=== PATIENT | male | born 1960 | race Caucasian/White ===

== ENCOUNTER 2022-04-24 21:20 | Observation (INO) | payer BC ==
[~2022-04-24] VITALS: Ht 180.3 cm; Wt 107.5 kg
[2022-04-24 22:26] LABS: BASOPHILS # (AUTO) 0.1 (0.0-0.1); BASOPHILS % 0.6 % (0.0-1.0); EOSINOPHILS # (AUTO) 0.3 (0.0-0.4); EOSINOPHILS % 2.7 % (0.0-6.0); HEMATOCRIT 47.9 % (38.2-49.6); HEMOGLOBIN 15.7 g/dL (14.0-18.0); LYMPHOCYTES # (AUTO) 2.7 (1.0-3.2); LYMPHOCYTES % 28.8 % (18.0-39.1); MEAN CORPUSCULAR HEMOGLOBIN 30.4 pg (28-32); MEAN CORPUSCULAR HGB CONC 32.8 g/dL (31-35); MEAN CORPUSCULAR VOLUME 92.8 fL (81-99); MONOCYTES # (AUTO) 0.9 (0.2-0.8); MONOCYTES % 9.5 % (4.4-11.3); NEUTROPHILS # (AUTO) 5.4 (2.1-6.9); PLATELET COUNT 295 x10e3/uL (140-360); RED BLOOD COUNT 5.16 x10e6/uL (4.3-5.7); RED CELL DISTRIBUTION WIDTH 13.3 % (11.7-14.4)
[2022-04-24 22:42] LABS: ALBUMIN 3.8 g/dL (3.5-5.0); ALBUMIN/GLOBULIN RATIO 1.4 (0.8-2.0); ANION GAP 15.5 mmol/L (8-16); CALCIUM 9.3 mg/dL (8.4-10.2); CREATININE, SERUM 1.26 mg/dL (0.72-1.25); POTASSIUM 3.5 mmol/L (3.5-5.1)
[2022-04-25] MEDS ORDERED: ASPIRIN 81 MG CHEW TAB PO ONE
[2022-04-25] MEDS ORDERED: SODIUM CHLORIDE FLUSH 10 ML SYR INJ PRN
[2022-04-25] MEDS ORDERED: ONDANSETRON HCL INJ 2MG/ML 2ML 2 MG/ML VIAL IV PRN
[2022-04-25 01:45] VITALS: BP 144/96
[2022-04-25] MEDS ORDERED: BENAZEPRIL HCL40 MG PO (02:16)
[2022-04-25] MEDS ORDERED: ATORVASTATIN CA20 MG PO (02:16)
[2022-04-25] MEDS ORDERED: METFORMIN HCL500 M1 PO (02:16)
[2022-04-25 02:21] VITALS: BP 144/96
[2022-04-25 02:29] VITALS: BP 144/96
[2022-04-25 08:18] VITALS: BP 144/96
[2022-04-25 08:25] LABS: BASOPHILS # (AUTO) 0.1 (0.0-0.1); BASOPHILS % 0.6 % (0.0-1.0); EOSINOPHILS # (AUTO) 0.3 (0.0-0.4); HEMATOCRIT 47.4 % (38.2-49.6); HEMOGLOBIN 15.7 g/dL (14.0-18.0); LYMPHOCYTES # (AUTO) 2.9 (1.0-3.2); LYMPHOCYTES % 27.5 % (18.0-39.1); MEAN CORPUSCULAR HEMOGLOBIN 30.7 pg (28-32); MEAN CORPUSCULAR HGB CONC 33.1 g/dL (31-35); MEAN CORPUSCULAR VOLUME 92.8 fL (81-99); MONOCYTES # (AUTO) 0.9 (0.2-0.8); MONOCYTES % 8.9 % (4.4-11.3); NEUTROPHILS # (AUTO) 6.2 (2.1-6.9); NEUTROPHILS % 59.7 % (38.7-80.0); PLATELET COUNT 286 x10e3/uL (140-360); RED BLOOD COUNT 5.11 x10e6/uL (4.3-5.7); RED CELL DISTRIBUTION WIDTH 13.5 % (11.7-14.4)
[2022-04-25 08:51] LABS: ALBUMIN 3.6 g/dL (3.5-5.0); ALBUMIN/GLOBULIN RATIO 1.4 (0.8-2.0); ANION GAP 12.8 mmol/L (8-16); CALCIUM 9.2 mg/dL (8.4-10.2); CREATININE, SERUM 1.03 mg/dL (0.72-1.25); POTASSIUM 3.8 mmol/L (3.5-5.1)
[2022-04-25] MEDS ORDERED: ASPIRIN 81 MG ENTERIC COATED PO SCH (09:00)
[2022-04-25] MEDS ORDERED: AMLODIPINE BESYLATE 5 MG TAB PO SCH (09:00)
[2022-04-25 09:22] LABS: CREATINE KINASE MB 1.9 ng/mL (0-5.0)
[2022-04-25 09:30] VITALS: BP 144/96
[2022-04-25] MEDS ORDERED: OLMESARTAN 20 MG TAB PO SCH (11:00)
[2022-04-25 12:03] VITALS: BP 148/91
[2022-04-25] MEDS ORDERED: ASPIRIN81 MG PO (12:05)
[2022-04-25] MEDS ORDERED: AZOR 5-20 MG T1 EACH PO (12:06)
[2022-04-25] MEDS ORDERED: ATORVASTATIN 20 MG TAB PO SCH (21:00)
[2022-04-25] MEDS ORDERED: METFORMIN HCL 500 MG TAB CR PO SCH (21:00)
== END 2022-04-25 15:23 | disposition home or self-care (01) ==
LOC: ER 21:30 → ERHOLD 23:12 → MED/SURG 04-25 01:43
PROVIDERS: ADMIT Internal Medicine; ATTEND Internal Medicine
DX: I16.0 Hypertensive urgency (principal); N17.9 Acute kidney failure, unspecified; E11.9 Type 2 diabetes mellitus without complications; I11.9 Hypertensive heart disease without heart failure; Z20.822 Contact with and (suspected) exposure to COVID-19; Z79.84 Long term (current) use of oral hypoglycemic drugs; Z88.0 Allergy status to penicillin
CPT/HCPCS: 0223U; 36415 ×2; 71046; 80053 ×2; 82550 ×2; 82553 ×2; 82948; 84484 ×2; 85025 ×2; 93005 ×2; 99284; G0378 ×2

== ENCOUNTER 2022-04-30 15:24 | Emergency (ER) | payer BC ==
[~2022-04-30] VITALS: Ht 180.3 cm; Wt 106.6 kg
[~2022-04-30 15:24] MED LIST: ASPIRIN81 MG PO; ATORVASTATIN CA20 MG PO; AZOR 5-20 MG T1 EACH PO; BENAZEPRIL HCL40 MG PO; METFORMIN HCL500 M1 PO
== END 2022-04-30 16:01 | disposition home or self-care (01) ==
LOC: ER 15:32
DX: R00.2 Palpitations (principal); R42 Dizziness and giddiness; I10 Essential (primary) hypertension; E11.9 Type 2 diabetes mellitus without complications; E78.5 Hyperlipidemia, unspecified; R94.31 Abnormal electrocardiogram [ECG] [EKG]
CPT/HCPCS: 93005; 99282